=== PATIENT | female | born 1985 | race Caucasian/White ===

== ENCOUNTER → 2017-08-01 17:55 | Outpatient (CLI) | payer OTHER, SELFPAY ==
--- NOTE | 2017-08-01 18:44 | CT_ITS ---
STUDY: CT MAXILLOFACIAL SINUSES REASON FOR EXAM: Female, 32 years old. Sinusitis RADIATION DOSAGE (If Supplied By Facility): CTDIvol = ( 33.06 ) mGy, DLP = ( 858.64 ) mGycm TECHNIQUE: The patient was scanned in a multi detector CT scanner. High resolution axial imaging was performed without the administration of intravenous contrast material. Sagittal and coronal images were reconstructed. Individualized dose optimization techniques were used for this CT. COMPARISON: None. FINDINGS: FRONTAL SINUSES: Normal aeration, without mucosal inflammatory disease. ETHMOIDAL SINUSES: Normal aeration, without mucosal inflammatory disease. MAXILLARY SINUSES: Normal aeration, without mucosal inflammatory disease. SPHENOIDAL SINUSES: Normal aeration, without mucosal inflammatory disease. There is patency of the bilateral maxillary infundibuli with normal uncinate processes, ethmoid bullae, and hiatus semilunaris. Normal bilateral middle turbinates. Normal bilateral inferior turbinates. Normal midline nasal septum. There is patency of the bilateral nasal airways. The visualized osseous structures are normal. The visualized bilateral orbital contents are normal. CT/Sinus/Facial Bone IMPRESSION: Normal CT examination of the maxillofacial sinuses. Electronically Signed: Anoop Quezada, at 21:10 EST Tel , Service support ,
== END ==
PROVIDERS: Family Provider Student in an Organized Health Care Education/Training Program; PCP Student in an Organized Health Care Education/Training Program; Visit Provider Otolaryngology
DX: J32.9 Chronic sinusitis, unspecified (principal)
CPT/HCPCS: 70486

== ENCOUNTER 2017-08-13 18:33 | Emergency (ER) | payer OTHER, SELFPAY ==
[2017-08-13 18:33] VITALS: BP 121/88; PULSE 100; RESP 16; TEMP 36.4; O2SAT 99; BMI 31.1
--- NOTE | 2017-08-13 19:31 | ED.DCSUM_ITS ---
- ER Visit Summary Date of Service: 08/13/17 Chief Complaint: Redness, tender and discharge from the lower abdominal incision History of Present Illness: The patient is a 32 F is post multiple level lumbar fusion on 08/03/2017 at [facility] by Dr. Cox. She was doing well. She became constipated secondary to pain medications. Had a wound separation secondary to straining at stools and her lower abdominal incision they did both a anterior posterior approach. And in the last day or 2 is developed some redness, tenderness and discharge from the lower abdominal incision. She is concerned is infected. Denies any fever. No chills. Physical Examination: Ill-appearing young female. Vital signs are stable afebrile. Does not look septic toxic. No acute distress. HEENT exam unremarkable. Neck nontender. Lungs clear to auscultation bilaterally. Heart regular rate and rhythm no murmur. Abdomen is soft nondistended normal bowel sounds no peritoneal signs. He is a well-healing vertical lower abdominal incision. On the distal and there are several stitches of come loose. The wound is there is some mild redness and discharge to site. This could be early signs of infection. There is no surrounding cellulitis otherwise. The abdomen is nontender itself. But the wound is tender. Back exam doing well. She is a well-healing lower lumbar incision is dry and clean. She has normal sensation and motor strength in both lower extremities. Test Results: None Emergency Department Course and Treatment: This may be an early wound infection. She will be started on Keflex. And instructed to follow-up she is appointment to see her spine surgeon later this week. She does return immediately if this is looking worse or get into see her spine surgeon sooner. Treatment Plan: Keflex 4 times daily for 7 days. Wound care. Follow-up with her spine surgeon. Disposition: Discharge Impression: Lower abdominal incision wound separation with early wound infection Status post multiple level lumbar fusion with both anterior and posterior approach This note was generated with [employer] dictation software. It may contain incorrect words, spelling, and punctuation that were not noted in review of the chart prior to signing ED Disposition - Plan for ED Patient: Chief Complaint: Wound Referrals: Cale Dillon DO [Primary Care Provider] -
--- NOTE | 2017-08-13 19:39 | ED.DEP ---
ED Disposition - Plan for ED Patient: Disposition: Home or Assisted Living Chief Complaint: Wound Prescriptions: Cephalexin [Keflex] 500 mg PO Q6 #30 cap Additional Instructions: Clean wound daily with peroxide and water or soap and water. Sitting redness or discharge. Keflex 1 pill 4 times a day till gone. Follow-up with your spine surgeon as scheduled or sooner if wound is looking worse. Return to the ER if you are feeling worse such as fever or chills.
[2017-08-13] MEDS: Cephalexin 250 MG Capsule 500 MG PO (19:49)
[2017-08-13 19:50] VITALS: BP 109/71; PULSE 86; RESP 16; O2SAT 100
== END 2017-08-13 19:50 | disposition home or self-care (01) ==
PROVIDERS: Emergency Provider Emergency Medicine; Family Provider Student in an Organized Health Care Education/Training Program; PCP Student in an Organized Health Care Education/Training Program
DX: T85.79XA Infection and inflammatory reaction due to other internal prosthetic devices, implants and grafts, initial encounter (principal); Y83.8 Other surgical procedures as the cause of abnormal reaction of the patient, or of later complication, without mention of misadventure at the time of the procedure; Y92.9 Unspecified place or not applicable; K59.00 Constipation, unspecified; Z98.1 Arthrodesis status
CPT/HCPCS: 99283

== ENCOUNTER → 2018-04-18 08:55 | Outpatient (CLI) | payer OTHER, SELFPAY ==
--- NOTE | 2018-04-18 13:44 | NEURO ---
NCS and/or EMG Patient Report Ordering Doctor: Concepcion Obrien DATE OF SERVICE: 04/18/18 Betty Del Valle is a 33-year-old female who reports a 9-month history of left foot numbness. Electrodiagnostic findings: The left peroneal motor nerve demonstrates normal distal latency, amplitude and conduction velocity. No evidence of conduction block at the fibular head. Left tibial motor responses within normal limits. Normal left tibial and peroneal F-wave. Sensory responses are within normal limits, including plantar responses. Needle EMG testing shows no evidence of denervation in any muscles tested in the left lower limb as well as the left lower lumbar paraspinals. Electrodiagnostic impression: This is a normal electrodiagnostic study of the left lower limb. There is no electrodiagnostic evidence for lumbosacral radiculopathy or peripheral neuropathy. If there are any further questions, please do not hesitate to contact me
== END ==
PROVIDERS: Family Provider Student in an Organized Health Care Education/Training Program; PCP Student in an Organized Health Care Education/Training Program; Referring Provider Podiatrist; Visit Provider Podiatrist
DX: M54.17 Radiculopathy, lumbosacral region (principal); M25.572 Pain in left ankle and joints of left foot
CPT/HCPCS: 95886; 95910

== ENCOUNTER → 2018-12-25 | Outpatient (CLI) | payer OTHER, SELFPAY ==
[2018-12-18 15:19] VITALS: BMI 32.1
--- NOTE | 2018-12-25 08:27 | US_ITS ---
STUDY: ULTRASOUND OF THE FEMALE PELVIS - COMPLETE REASON FOR EXAM: Female, 33 years old. Dyspareunia: Distal hysterectomy. Status post left oophorectomy. TECHNIQUE: Transabdominal and Transvaginal TECHNICAL QUALITY: Adequate. COMPARISON: CT pelvis May 03, 2017 FINDINGS: The uterus has been surgically removed. The right ovary is visualized. The right ovary measures 3.3 x 2.5 x 2.2 cm. There is a 1.3 x 1.0 x 0.9 cm right ovarian cyst or follicle. There is no visualized right adnexal mass or complex lesion. There is normal arterial and normal venous vascularity. History given is left oophorectomy however there is a structure which morphologically appears to be a small left ovary that measures 1.4 x 0.7 cm. There is no fluid in the cul-de-sac. The bladder is decompressed on the transvaginal study and partially distended on the transabdominal study. US/Pelvic (Non ) IMPRESSION: Status post hysterectomy. Small right ovarian follicle. Recommend correlation with clinical history there is a small structure in the left side of the adnexa that has a morphologic appearance of an normal ovary. Electronically Signed: Shani Harmon MD at 17:24 EDT Tel , Service support ,
--- NOTE | 2018-12-25 08:27 | US_ITS ---
STUDY: ULTRASOUND OF THE FEMALE PELVIS - COMPLETE REASON FOR EXAM: Female, 33 years old. Dyspareunia: Distal hysterectomy. Status post left oophorectomy. TECHNIQUE: Transabdominal and Transvaginal TECHNICAL QUALITY: Adequate. COMPARISON: CT pelvis May 03, 2017 FINDINGS: The uterus has been surgically removed. The right ovary is visualized. The right ovary measures 3.3 x 2.5 x 2.2 cm. There is a 1.3 x 1.0 x 0.9 cm right ovarian cyst or follicle. There is no visualized right adnexal mass or complex lesion. There is normal arterial and normal venous vascularity. History given is left oophorectomy however there is a structure which morphologically appears to be a small left ovary that measures 1.4 x 0.7 cm. There is no fluid in the cul-de-sac. The bladder is decompressed on the transvaginal study and partially distended on the transabdominal study. US/Transvaginal Non- IMPRESSION: Status post hysterectomy. Small right ovarian follicle. Recommend correlation with clinical history there is a small structure in the left side of the adnexa that has a morphologic appearance of an normal ovary. Electronically Signed: Shani Harmon MD at 17:24 EDT Tel , Service support ,
== END | disposition home or self-care (01) ==
PROVIDERS: Family Provider Student in an Organized Health Care Education/Training Program; PCP Student in an Organized Health Care Education/Training Program; Referring Provider Nurse Practitioner Women's Health; Visit Provider Nurse Practitioner Women's Health
DX: R10.2 Pelvic and perineal pain (principal)
CPT/HCPCS: 76830; 76856; 93976

== ENCOUNTER → 2018-12-28 13:26 | Outpatient (CLI) | payer OTHER, SELFPAY ==
[2018-12-28 12:01] VITALS: BMI 32.1
== END ==
PROVIDERS: Family Provider Student in an Organized Health Care Education/Training Program; PCP Student in an Organized Health Care Education/Training Program; Referring Provider Obstetrics & Gynecology; Visit Provider Obstetrics & Gynecology
DX: N89.8 Other specified noninflammatory disorders of vagina (principal)
CPT/HCPCS: 87070; 87205

== ENCOUNTER 2019-08-22 08:01 | Outpatient (RCR) | payer OTHER, SELFPAY ==
[2018-12-28 12:01] VITALS: BMI 32.1
--- NOTE | 2019-08-23 08:19 | HP.FCE ---
HP OT Functional Capacity Eval Date of Evaluation: 08/22/19 - Task Lift Floor (Occasional 1-33% of Day): 30 lbs Floor (Frequent 34-66% of Day): 15 lbs Floor (Constant 67-100% of Day): negligible Floor PDL: Light Knee (Occasional 1-33% of Day): 30 lbs Knee (Frequent 34-66% of Day): 15 lbs Knee (Constant 67-100% of Day): negligible Knee PDL: Light Waist (Occasional 1-33% of Day): 30 lbs Waist (Frequent 34-66% of Day): 15 lbs Waist (Constant 67-100% of Day): negligible Waist PDL: Light Shoulder (Occasional 1-33% of Day): 20 lbs Shoulder (Frequent 34-66% of Day): 10 lbs Shoulder (Constant 67-100% of Day): negligible Shoulder PDL: Light Overhead (Occasional 1-33% of Day): 20 lbs Overhead (Frequent 34-66% of Day): 10 lbs Overhead (Constant 67-100% of Day): negligible Overhead PDL: Light Comments: Carry: Occassional: 15 lbs. Frequent: 10 lbs. Constant: negligible - Work Activity/Posture Bending: Frequent Ability (34-66% of day) Squatting: Frequent Ability (34-66% of day) Kneeling: Occasional Ability (1-33% of day) Reaching out: Frequent Ability (34-66% of day) Reaching up: Frequent Ability (34-66% of day) Sitting: Frequent Ability (34-66% of day) Walking: Frequent Ability (34-66% of day) Standing: Frequent Ability (34-66% of day) - Reference Duration Sedentary Sedentary Light Light Light Medium Medium Medium Heavy Very Heavy Heavy Occasional (0-33% of day) Frequent (34-66% of day) Constant (67-100% of day) 10 # Negligible Negligible 15 # 8 # Negligible 20 # 10# Negli. 35 # 18 # 7 # 50 # 25 # 10 # 75 # 100 # >100 # 38 # 50 # >50 # 15 # 20 # >20 # - Patient Information Height: 1.57 m Weight:: 87.997 kg Hand Dominance: right BP (Medication Use/Usual Values per pt report): No - Medical History Medical History Including Restrictions: No medical restrictions provided by referring physician or patient at this time. This was to see what she can physically complete. - Diagnoses Diagnoses: Past medical history: irritable bowel syndrome, C1 & C2 repair (2004), bipolar affective disorder, thyroid disease, migraines, left leg paresthesia, chronic low back pain with left sided sciatica, left foot drop (no brace), hysterectomy, spinal fusion from L 5- S1 (08/03/2017). Current: She is currently referred for functional capacity evaluation (FCE) due to ongoing lumbar back related pain from spinal fusion surgery 08/03/2017 and increased difficulty with compeltion of eight hout shift. - Symptoms Symptoms: She noted symptoms include numbness, tingling, burning, and sharp pain down left lower extremity. She noted symptoms are constant since surgery. - Pain Pain: She noted pain includes numbness, tingling, burning, and sharp pain down left lower extremity. She noted symptoms are constant since surgery. She has completed six weeks of physical therapy and recently been referred again for physical therapy services. She noted that she has. Daniel Pain Questionnaire is a self-report pain assessment to determine a patient?s accurate psychodynamics for accurate pain rating. A score of 30 or high indicates poor psychodynamics and the greater probability of decreased accuracy with accurate pain reporting. . Pre- Daniel: 28. Post Daniel: 36. Fear Avoidance Questionnaire (FAQ) is a client self-report assessment for 18-64+ that has shown to be reliable and valid for determining increased fear with movements. A score of 96 or higher indicates increased fear avoidance behaviors. FAQ Pre-testin. -Fear avoidance belief about work (items 6,7,9,10,11,12,15): 35. -Fear avoidance belief about physical activity (items 2,3,4,5):19. FAQ Post testing: -Fear avoidance belief about work (items 6,7,9,10,11,12,15): 28. -Fear avoidance belief about physical activity (items 2,3,4,5):17. Oswestry low back disability questionnaire is a subjective measurement in which a participant rates their low back pain on a scale. This higher the percentage the higher the perceived disability. Total: 16/50=32. The Lower Extremity Functional Scale questionnaire is a subjective measurement in which a participant rates their lower extremity function on a scale. This higher the percentage the higher the perceived disability. Total: 61/80. Completed the Foot and Ankle Disability Index (HILARIA) Score for further pain management measurements and results as follows: HILARIA: 72 - Work History Work History: Betty works at [employer] in [place], [place]. She noted she has been working there for about a month. She noted works monday through monday with frequent standing, bending, reaching, and squatting. 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 - Behavioral Behavioral: Betty was willing to participate in tasks and was cooperative and understanding with assessment. She exhibit good effort throughout sessiona nd pain reports appeared consistent with us eof Daniel. - ADLS ADLS: Betty lives with house with and two children. She noted two steps to enter through garage with no handrail. She noted she is independent with all self-care tasks and child rearing activities. She is driving and currently working full-time. She is able to go to grocery store and completed tasks but has been experience ongoing pain and discomfort since lumbar related spinal fusion in 2018 which pain is constant down left lower extremity and requires seated breaks after about hour of standing tasks. - Physical Examination Physical Examination: The purpose of this functional capacity evaluation (FCE) was to determine Betty?s physical ability. This FCE was performed in order to cafeteria helper in the determination of her physical ability for work -related tasks. This was a one day FCE. Aerobic limiting factor: 85% of max adjust HR= (220-age) *.85= 156. 4 bpm. Calculated max weight: 60% of weight- 118 lbs. Beginning Diagnostics: -Blood pressure: 129/92 mmHg. -Heart rate: 68 bpm. -Oxygen saturation at room air: 98% ROM: Range of Motion: Lumbar Spine with goniometer: -Flexion:0-39. -Extension: 0-33. -Lateral Flexion: R 0-34 , L 0-35 Strength: Strength measurements completed with use of manual muscle testing and short arm access of dynamometer. Results are as follows: Upper Body: Shoulder flexion: -Dynamometer: R 26.2 , L 16.4 lbs. Shoulder extension: -Dynamometer: R 16.6 , L 13.2 lbs. Shoulder abduction: -Dynamometer: R 15 , L 14.2 lbs. Shoulder Internal Rotation: -Dynamometer: R 18.4 , L 15.4 lbs. Shoulder External Rotation: -Dynamometer: R 14.8, L 14.5 lbs. Elbow flexion: -Dynamometer: R 26.0 , L 22.0 lbs. Elbow extension: -Dynamometer: R 14.6 , L 13.7 lbs. Lower Body: Hip flexion: -Dynamometer: R 25.7 , L 25.7 lbs. Hip adduction: -Dynamometer: R 26.4 , L 20. 5 lbs. Hip abduction: -Dynamometer: R 14.1 , L 18.7 lbs. Knee Flexion: -Dynamometer: R 27.8 , L 25. 2 lbs. Knee extension: -Dynamometer: R 30.3 , L 31.3 lbs. Plantarflexion: -Dynamometer: R 22.0 , L 21.8 lbs. Dorsiflexion: -Dynamometer: R 26.9 , L 27.4 Right [employer] Strength Average: 48.33 Left [employer] Strength Average: 34.33 Right Lateral Pinch Average: 10.00 Right Lateral Pinch Percentile: between 10th and 25th Left Lateral Pinch Average: 8.33 Left Lateral Pinch Percentile: below 10th Right Tripod Pinch Average: 6.33 Right Tripod Pinch Percentile: below 10th Left Tripod Pinch Average: 5.00 Left Tripod Pinch Percentile: below 10th Comments: [employer] testing on Dynamometer: Position 1: R 35 , L 19. Position 2: R 34 , L 28. Position 3: R 31 , L 42. Position 4: R 35 , L 19. Position 5: R 23 , L 19. A coefficient of variation greater than 15 % indicated decreased consistency of effort. Coefficient of variation: R 16%, L 40 %. Consistency of Effort: inconsistent Sensation: Sensation testing completed on bilateral feet with monofilament touch test. A score of normal on touch test is 2.83 and within normal range with just some discrepancies for light touch is between 3.22-3.61. The higher the number in more complications related to patient?s ability to perceive touch related sensory stimuli. R Foot: great toe 3.22 ,2nd 3.22 , 3rd 3.22 , 4th 3.61 , 5th 2.83. L foot: great toe 3.22 ,2nd 3.22 , 3rd 3.84 , 4th 3.22 , 5th 3.22. Completed foot sensation only as that is where symptoms persist. However, pain patterns consistent with low back related dermatome innervation and like some of sensory related pain is from lumbar spine. Fine Motor: Completed the Purdue Pegboard test to further determine the patient?s ability to complete 2-3 step tasks, assess fine motor control and general dexterity needed to complete assembly like work. The results are as follows: Right Hand: 16. -Percentile: 27th. Left Hand: 15. -Percentile: 30 th. Both Hands: 13. -Percentile: 37th. R+ L+ Both: 44. -percentile: 40th. Assembly: 8. -percentile: below 1st. Completed task in standing. Equal weightbearing observed into bilateral lower extremities. Balance: Sharpened Romberg is a sensory related balance test that can assess both vestibular and nonvestibular related balance conditions. This test can be used for higher level off the ground balance with eyes open and eyes closed. Completed with shoes on: Eyes open: Feet Together: 30 s. Semi- Tandem: 30 s. Tandem: 30 s. Eyes- Closed: Feet Together: 30 s. Semi- Tandem: 30 s. Tandem: 24 s. Functional reach test is used to determine static balance in patients. A score of 15 is normal and less than 10 increases risk of falling. A score of 6 or less significantly increases a patient?s risk of falling. [place] 1: 9.5. [place] 2: 9.5. [place] 3: 9.5. Average: 9.5. Limited by soft tissue as does not exhibit static balance concern at this time. Functional Gait Assessment (FGA) is a dynamic balance test to determine vestibular functioning and general dynamic balance ability of patient 18-65+. This assessment can be used with clients of various backgrounds to determine functional dynamic balance needed to complete every day work related tasks. 1.Gait Level Surface:3. 2.Change in Gait Speed: 2. 3.Gait with horizontal head turns:2. 4.Gait with vertical head turns:3. 5.Gait and pivot turn:3. 6.Step over obstacle:3. 7.Gait with narrow base of support: 3. 8.Gait with eyes closed: 3. 9.Ambulating Backwards: 3. 10.Steps: 3. Total Score: 28/maximum score 30. Exhibits good dynamic balance. - Non Material Handling Activities Bending: Heart rate prior to beginning with use of pulse oximeter: 81 bpm. 3x, 10x in 27.80 seconds, and 10x faster in 27.85 seconds. Completed with fair body mechanics. Betty exhibits equal weight bearing into bilateral lower extremities. Some increased mechanical compensations noted. She exhibits decreased spinal alignment with increased thoracic flexion. Slight increase in heart rate from exertion and no pain behaviors observed. She exhibits ability to complete frequently. Heart rate posttest with use of pulse oximeter: 91 bpm. Perceived pain: 3/10 Squatting: Heart rate prior to beginning with use of pulse oximeter: 86 bpm. 3x, 10x in 34.55 seconds, and 10x faster in 32.67 seconds. Completed with fair body mechanics. Exhibits ability to complete full squat. Completed with mechanical compensations of increased knee flexion placing increased force on knee. Compensations noted through pelvis with increased anterior pelvic tilt causing decreased spinal alignment. She noted increase in pain symptoms with increased burning of left foot. Some grimaces noted with tasks. Increase in heart rate appears to be exertion and potentially some pain. Exhibits ability to complete frequently. Heart rate posttest with use of pulse oximeter: 139 bpm. Perceived pain: 3/10- noted increased burning sensation in left foot Kneeling: Heart rate prior to beginning with use of pulse oximeter: 113 bpm. 3x, 10x in 28.48 seconds, and 10x faster in 29.28 seconds. Betty completed with [employer] body mechanics. Increased mechanical changes and compensations as tasks progressed. Decreased balance noted with task with onetime loss of balance with first set of ten repetitions and then three-time loss of balance occurrence with ability to complete self-righting behaviors to promote increased self-correction. Completed with mechanical compensations of lateral leaning to right side as well as increased anterior pelvic tilt and increased trunk flexion to promote balance for tasks. Some grimace and pain behaviors noted. Heart rate increased likely exertion and some mild increased pain related symptoms, but pain rating remains consistent. Exhibits ability to complete occasionally. Heart rate posttest with use of pulse oximeter: 134 bpm. Perceived pain: 3/10 Reaching out/up: Heart rate prior to beginning with use of pulse oximeter: 100 bpm. 3x, 10x in 12.67 seconds, and 10x faster in 11.01 seconds. Heart rate posttest with use of pulse oximeter: 106 bpm. Perceived pain: 3/10. Heart rate prior to beginning with use of pulse oximeter: 101 bpm. 3x, 10x in 11.08 seconds, and 10x faster in 9.90 seconds. Heart rate posttest with use of pulse oximeter: 120 bpm. Perceived pain: 3/10. Completed reaching forward and overhead with full range of motion and equal weightbearing tasks. Betty exhibit ability to complete equal weightbearing in bilateral lower extremity. She can complete reaching tasks frequently. Walking: Betty completed 20 mins of walking around facility with mild antalgic gait. She completed at good pace with ability to complete 4,760 feet within 20 minutes. She exhibits ability to complete frequent walking. However, walking does tend to exacerbate symptoms and would be beneficial to be completed with alternation between more sedentary tasks. Standing: During session Betty completed 60 mins of standing with both static and dynamic tasks. As standing tasks progressed there was increase in weight shifting and mechanical compensations to offset load away from left lower extremity. Betty noted symptoms increasing as standing tasks progressed and compensations were noted. She exhibits ability to complete frequent standing but should be provided with seated breaks throughout task to help manage pain. Sitting: Betty exhibits ability to complete 30 minutes of sitting with ability to complete longer. She noted sitting provides relief for lumbar spine and left lower extremity symptoms. She exhibits ability to complete frequently. Climbing Stairs: Heart rate prior to beginning with use of pulse oximeter: 81 bpm. Completed ten stairs with alternating foot patterns and no use of handrails. Heart rate posttest with use of pulse oximeter: 100 bpm. Perceived pain:3/10 - Dynamic Occasional Lifting Capacity Floor Lift: Heart rate prior to beginning with use of pulse oximeter: 100 bpm. Maximum weight: 1x 40 lbs. Occasional Liftinx 30 lbs. Frequent liftinx 15 lbs. Completed with fair body mechanics. Decreased ergonomics observed with increased straight leg lift and increased need for verbal cues to promote wider base of support. Equal weightbearing in bilateral lower extremities observed. Increased mechanical compensations with max weight but much improved as weight moved to occasional task. She exhibit consistency in effort for tasks. No increase in heart reflective of pain. no increase in pain related behaviors. Would benefit from further ergonomic training for load manipulation. Heart rate posttest with use of pulse oximeter: 106 bpm. Perceived pain: 3/10 Knee Lift: Heart rate prior to beginning with use of pulse oximeter: 106 bpm. Maximum weight: 1x 40 lbs. Occasional Liftinx 30 lbs. Frequent liftinx 15 lbs. Completed knee lift with fair mechanics. She exhibits increased compensations with increased reliance of bilateral upper extremities for lift while equal weightbearing was observe din lower extremities. Decreased ergonomics observed. Pain remained at 3/10 but noted increased sensory related pain with increased burning in foot. Slight grimace noted with movements but increase in heart rate reflective of exertion. Heart rate posttest with use of pulse oximeter: 117 bpm. Perceived pain: 3/10 Waist Lift: Heart rate prior to beginning with use of pulse oximeter: 91bpm. Maximum weight: 1x 40 lbs. Occasional Liftinx30 lbs. Frequent liftinx 15 lbs. Completed waist lift with fair mechanics. Decreased spinal alignment noted with increased anterior pelvic tilt during task for increased mechanical compensations due to weakness of core and trunk. Decreased consistency of effort noted as should be able to lift more at this location as this is power lift. No increase in ability observed but was starting to fatigue. Increase in heart likely due to exertion as pain remained at 3/10. Heart rate posttest with use of pulse oximeter: 111 bpm. Perceived pain: 3/10 Shoulder Lift: Heart rate prior to beginning with use of pulse oximeter: 108 bpm. Maximum weight: 1x 25 lbs. Occasional Liftinx 20 lbs. Frequent liftinx 10 lbs. Completed with fair mechanics. Completed with use of top handles of box. Increased anterior pelvic tilt observed with increased mechanical compensations through spine noted with load placement. Increase in heart rate observed likely due to effort and increase noted in pain in left foot. Equal weight bearing observed but increased pain behaviors during standing breaks during task as would weight shift on and off od left foot. Heart rate posttest with use of pulse oximeter: 126 bpm. Perceived pain: 3/10 Overhead Lift: Heart rate prior to beginning with use of pulse oximeter: 99 bpm. Maximum weight: 1x 25 lbs. Occasional Liftinx 20 lbs. Frequent liftinx 10 lbs. Completed with fair mechanics and increased mechanical compensations noted of increased anterior pelvic tilt due to core weakness and increased trunk extension observed. Completed with some pain behaviors observed of weight shifting to right load extremity to offset load to left lower extremity and foot. Completed with no increase in heart rate t reflect increase in distress or pain. Betty did not increase in pain symptoms of left foot. Heart rate posttest with use of pulse oximeter: 101 bpm. Perceived pain: 3/10 noted additional burning into heal. Carrying: Heart rate prior to beginning with use of pulse oximeter: 99 bpm. Maximum weight: 1x 25 lbs. Occasional Liftinx 15 lbs. Frequent liftinx 10 lbs. Completed with fair body mechanics. Increased mechanical compensations observed with increased weight shift and load distribution to right hip and lower extremity. She was exhibit to complete increased pain related behaviors with increased weight shift off right lower extremity. Betty noted increased ?pulling and throbbing of left foot and calf?. 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 Heart rate posttest with use of pulse oximeter: 132 bpm. Perceived pain: 4/10 Comments: Ending diagnostics: -Blood pressure: 114/69 mmHg. -Heart rate: 79. -Oxygen saturation at room air: 98 %
--- NOTE | 2019-08-23 08:19 | HP.OTFCE.D ---
FCE D/C Summary - Discharge SRI CHAKRABORTY was seen for a one time visit for an FCE on 08/22/19 and is discharged.
== END 2019-08-22 19:00 | disposition home or self-care (01) ==
LOC: OT 08:01
PROVIDERS: PCP Student in an Organized Health Care Education/Training Program; Referring Provider Student in an Organized Health Care Education/Training Program; Visit Provider Student in an Organized Health Care Education/Training Program
DX: M79.672 Pain in left foot (principal); M21.372 Foot drop, left foot; R20.2 Paresthesia of skin; S32.058G Other fracture of fifth lumbar vertebra, subsequent encounter for fracture with delayed healing; M54.42 Lumbago with sciatica, left side; G89.29 Other chronic pain
CPT/HCPCS: 97750

== ENCOUNTER → 2020-11-16 16:57 | Outpatient (CLI) | payer OTHER, SELFPAY ==
[2020-02-06 08:56] VITALS: BMI 32.1
[2020-11-16 17:59] LABS: D-Dimer Quantitative (DVT/PE) 0.56 FEU/ug/m (0.27-0.49)
== END ==
PROVIDERS: PCP Student in an Organized Health Care Education/Training Program; Referring Provider Physician Assistant; Visit Provider Physician Assistant
DX: R60.9 Edema, unspecified (principal)
CPT/HCPCS: 36415; 85379

== ENCOUNTER 2020-11-16 18:52 | Emergency (ER) | payer OTHER, SELFPAY ==
[2020-02-06 08:56] VITALS: BMI 32.1
[2020-11-16 18:52] VITALS: BP 152/77; PULSE 89; RESP 16; TEMP 36.4; O2SAT 98; BMI 34.7
--- NOTE | 2020-11-16 19:11 | EX.ED.DYSGE1 ---
HPI History of Present Illness Chief Complaint: Abn Labs Informant: patient Narrative Narrative: 35-year-old female recently flew home from [place]. She started to have some leg swelling so she went to her [facility] physician who sent her for D-dimer which returned elevated 0.56. She is here to obtain duplex ultrasound to rule out DVT. She denies any significant chest pain or shortness of breath. No palpitations. No prior history of DVT or PE. Patient notes both legs are swollen PFSH [facility] Medical History (Updated 11/16/20 @ 20:[address] Sabino Brownlee DO) Back pain Bipolar affective disorder C1 & C2 repair Gastrointestinal problem H/O abnormal cervical Papanicolaou smear (~2007) H/O bone fracture H/O LSO and extensive scar removal Hx of migraine headaches IBS (irritable bowel syndrome) Migraine Thyroid disease Home Medications lorazepam 0.5 mg tablet 0.5 mg PO QHS PRN 01/19/18 [History Last Taken Unknown] paroxetine HCl 20 mg tablet 20 mg PO QDAY 01/19/18 [History Last Taken Unknown] rizatriptan 10 mg tablet 10 mg PO ONCE 01/19/18 [History Last Taken Unknown] furosemide 40 mg PO DAILY #5 tab 11/16/20 [Rx Last Taken Unknown] potassium chloride 20 meq PO DAILY #5 tab 11/16/20 [Rx Last Taken Unknown] Allergy/AdvReac Type Severity Reaction Status Date / Time morphine Allergy Hives Verified 11/16/20 18:55 hydrocodone bitartrate AdvReac Nausea Verified 11/16/20 18:55 [From Vicodin] Family History Mother Heart disease Grandfather Diabetes Aunt Breast cancer Grandfather Hypertension CVA (cerebral vascular accident) Diabetes Surgical History H/O section H/O spinal fusion H/O: hysterectomy Social History Smoking Status: Never smoker alcohol intake: current details: occasionally substance use type: does not use caffeine: Yes what type of physical activity do you participate in: none seatbelt use: sometimes do you feel safe at home: Yes 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 ROS ROS ED Constitutional Constitutional ED: Denies chills or weight loss Eyes Eyes: Denies change in vision or diplopia ENT ENT ED: Denies ear pain, rhinorrhea or sore throat Cardiovascular Cardiovascular: Denies chest pain, orthopnea, palpitations or racing heartbeat Respiratory/Chest Respiratory/Chest: Denies cough, dyspnea or orthopnea Gastrointestinal Gastrointestinal: Denies abdominal pain, diarrhea, nausea or vomiting Genitourinary Genitourinary ED: Denies dysuria, hematuria or urinary frequency Musculoskeletal Musculoskeletal: Reports other Details: Bilateral leg swelling ; Denies arthralgias or myalgias Integumentary Denies abscess or rash Neurologic Neurologic: Denies headache(s) or weakness Psychiatric Psychiatric: Denies anxiety, depression, suicidal ideation or suicidal thoughts Endocrine Endocrinology: Denies polydipsia, polyphagia or polyuria Allergic/Immunologic Allergic/Immunologic ED: Denies mouth swelling, tongue swelling or urticaria EXAM Physical Exam Const Vital Signs: 11/16/20 18:52 Temperature 97.6 F L Temperature Source Temporal Pulse Rate 89 Respiratory Rate 16 Blood Pressure 152/77 H Blood Pressure Mean 102 Pulse Ox 98 Oxygen Delivery Method Room Air Positive well nourished and well developed General Appearance ED: well developed HEENT Reports normocephalic, head/scalp atraumatic and moist mucous membranes Eyes PERRL and EOMs intact bilaterally Neck no lymphadenopathy, supple and no JVD Resp normal respiratory effort and clear to auscultation bilaterally Cardio regular rate, regular rhythm and no murmurs GI normal to inspection, nondistended, normoactive bowel sounds and non-tender Palpation: soft Back/Spine no CVA tenderness and normal ROM Extremity normal to inspection Extremity Narrative: Patient has bilateral pitting edema to the level of the tibial tuberosity. There are no palpable cords. The calves are nontender. General Extremety ED: Yes edema General Extremity: edema Neuro oriented x3 and CN's II-XII intact bilaterally Sensorium / Orientation: alert Motor Exam: strength 5/5 throughout Psych mental status grossly normal Mood & Affect: Negative for depressed or tearful Skin no rashes or lesions noted and no wounds MDM MDM MDM Narrative Medical decision making narrative: Bilateral duplex ultrasound was negative for DVT. Potassium slightly low at 3.3. Not . Renal function normal. Patient will be started on K-Dur and some Lasix. Recommend elevating the legs. Monitoring salt intake. Follow-up with primary care. Lab Data Labs: Laboratory Results - last 24 hr 11/16/20 11/16/20 11/16/20 19:20 19:20 19:20 WBC 6.3 RBC 3.75 L Hgb 11.1 L Hct 33.1 L MCV 88.3 MCH 29.6 MCHC 33.5 RDW Std Deviation 40.1 RDW Coeff of Jitendra 12.4 Plt Count 218 MPV 9.9 Immature Gran % (Auto) 0.500 Neut % (Auto) 65.5 Lymph % (Auto) 26.3 [place] % (Auto) 6.2 Eos % (Auto) 1.3 Baso % (Auto) 0.2 Absolute Neuts (auto) 4.1 Absolute Lymphs (auto) 1.66 Nucleated RBC % 0 Sodium 142 Potassium 3.3 L Chloride 107 Carbon Dioxide 27.0 Anion Gap 8 BUN 13 Creatinine 0.74 Estim Creat Clear Calc 82.32 Est GFR (MDRD) Af Amer 114 Est GFR (MDRD) Non-Af 94 BUN/Creatinine Ratio 17.7 Glucose 109 H Calcium 8.6 Total Bilirubin 0.30 AST 20 ALT 31 Alkaline Phosphatase 68 Total Protein 6.6 Albumin 3.6 Globulin 3.0 Albumin/Globulin Ratio 1.2 Serum , Qual NEGATIVE Discharge Plan Triage Chief Complaint: Abn Labs ED Provider: Sabino Brownlee Dx/Rx/DC Orders Clinical Impression: Lymphedema Instructions: ED Peripheral Edema, Bilateral Prescriptions: New furosemide 40 mg tablet 40 mg PO DAILY Qty: 5 RF: 0 potassium chloride 20 mEq tablet extended release 20 meq PO DAILY Qty: 5 RF: 0 No Action paroxetine HCl 20 mg tablet 20 mg PO QDAY RF: 0 lorazepam [Ativan] 0.5 mg tablet 0.5 mg PO QHS PRNRF: 0 rizatriptan [Maxalt] 10 mg tablet 10 mg PO ONCE RF: 0 Primary Care Provider: Cale Dillon Referrals: Cale Dillon DO [Primary Care Provider] - 1 Week Disposition Disposition: Home, self care
--- NOTE | 2020-11-16 19:16 | US_ITS ---
STUDY: VENOUS DOPPLER ULTRASOUND - BILATERAL LOWER EXTREMITIES REASON FOR EXAM: Female, 35 years old. ELEVATED D DIMER AND BILAT LEG SWELLING TECHNIQUE: Ultrasound evaluation of the deep vein system to include pacheco-scale imaging and compression was performed. Pacheco-scale imaging and Doppler sonographic evaluation, including duplex spectral analysis and qualitative color flow sonography, was performed. COMPARISON: None. FINDINGS: RIGHT LEG Common Femoral Vein: Normal compression, spontaneity and augmentation. Normal color Doppler. Common Femoral Vein/Greater Saphenous Junction: Normal compression. Femoral Proximal: Normal compression. Femoral Middle: Normal compression, spontaneity and augmentation. Normal color Doppler. Femoral Distal: Normal compression. Popliteal Vein: Normal compression, spontaneity and augmentation. Normal color Doppler. Posterior Tibial Vein: Normal compression. Peroneal Vein: Normal compression. LEFT LEG Common Femoral Vein: Normal compression, spontaneity and augmentation. Normal color Doppler. Common Femoral Vein/Greater Saphenous Junction: Normal compression. Femoral Proximal: Normal compression. Femoral Middle: Normal compression, spontaneity and augmentation. Normal color Doppler. Femoral Distal: Normal compression. Popliteal Vein: Normal compression, spontaneity and augmentation. Normal color Doppler. Posterior Tibial Vein: Normal compression. Peroneal Vein: Normal compression. US/Venous Duplex Imag/Juan Extrem IMPRESSION: No demonstrated deep vein thrombosis. Electronically Signed: Yesi Colon MD at 20:27 EDT Tel , Service support ,
[2020-11-16 19:33] LABS: Absolute Lymphocyte Count 1.66 X10^3/uL (0.83-4.51); Absolute Neutrophil Count 4.1 X10^3/uL (2.0-7.7); Basophil# 0.01 X10^3/uL; Basophil% 0.2 % (0-1); Eosinophil# 0.08 X10^3/uL; Eosinophils% 1.3 % (0-5); Hematocrit 33.1 % (37-47); Hemoglobin 11.1 g/dL (12.0-15.0); Lymphocyte # 1.66 X10^3/ul (0.83-4.51); Lymphocyte % 26.3 % (19-41); Mean Corp Hgb Conc 33.5 g/dL (32-36); Mean Corpuscular Hgb 29.6 pg (27.0-32.0); Mean Corpuscular Volume 88.3 fL (81-99); Mean Platelet Vol. 9.9 fl (6.2-12.0); Monocyte# 0.39 X10^3/uL; Monocyte% 6.2 % (0-10); NRBC Flagged by Analyzer 0 % (0-5); Neutrophil # 4.14 X10^3/uL (2.7-7.7); Neutrophil % 65.5 % (47-70); Platelet Count 218 K/mm3 (150-450); RBC Distribution Width CV 12.4 % (11.6-14.6); RBC Distribution Width SD 40.1 fl (35.1-43.9); Red Blood Count 3.75 M/mm3 (4.2-5.4); White Blood Count 6.3 K/mm3 (4.4-11.0)
[2020-11-16 19:50] LABS: ALB/GLOB Ratio 1.2 RATIO (0.9-2.4); AST(SGOT) 20 U/L (15-37); Alanine Aminotransfer ALT/SGPT 31 U/L (13-56); Albumin, Serum 3.6 g/dL (3.2-5.0); Alkaline Phosphatase 68 U/L (45-117); Anion Gap 8 (5-15); BUN 13 mg/dL (7-18); BUN/Creat Ratio 17.7 RATIO (10-20); Calcium,Total 8.6 mg/dL (8.5-10.1); Chloride 107 mmol/L (98-107); Creatinine, Serum 0.74 mg/dL (0.55-1.02); EST Glomerular Filtration Rate 94 mL/min (>60); Est Glom Filt Rate - Afr Amer 114 mL/min (>60); Estimated Creatinine Clearance 82.32 ml/min; Glucose 109 mg/dL (74-106); Internal QC Validated? YES +Cl - CLEAR BKGD; Potassium 3.3 mmol/L (3.5-5.1); Pregnancy, Serum, hCG Quali. NEGATIVE Negative; Protein, Total 6.6 g/dL (6.4-8.2); Sodium Level 142 mmol/L (136-145)
[2020-11-16 20:30] VITALS: PULSE 68; RESP 15; O2SAT 100
== END 2020-11-16 20:30 | disposition home or self-care (01) ==
LOC: ED 20:15
PROVIDERS: Emergency Provider Emergency Medicine; PCP Student in an Organized Health Care Education/Training Program
DX: I89.0 Lymphedema, not elsewhere classified (principal); Z56.0 Unemployment, unspecified; F31.9 Bipolar disorder, unspecified
CPT/HCPCS: 80053; 84703; 85025; 93970; 99283; A4216

== ENCOUNTER → 2021-01-12 15:07 | Outpatient (CLI) | payer OTHER, SELFPAY ==
[2021-01-12 14:50] VITALS: BMI 34.7
[2021-01-12 16:06] LABS: Estradiol 65.6 pg/mL; Follicle Stimulating Hormone 5.6 mIU/mL; Thyroid Stim Hormone (TSH) 0.81 uIU/mL (0.358-3.74)
== END ==
PROVIDERS: PCP Student in an Organized Health Care Education/Training Program; Referring Provider Nurse Practitioner Women's Health; Visit Provider Nurse Practitioner Women's Health
DX: Z13.29 Encounter for screening for other suspected endocrine disorder (principal); R63.5 Abnormal weight gain
CPT/HCPCS: 36415; 82627; 82670; 83001; 84402; 84443; 82626

== ENCOUNTER → 2021-02-02 08:13 | Outpatient (CLI) | payer OTHER, SELFPAY ==
[2021-02-02 08:59] LABS: Cholesterol 239 mg/dL (200); High Density Lipoprotein 38 mg/dL; Triglycerides 324 mg/dL; Very Low Density Lipoprotein 65 mg/dL (5-40)
[2021-02-07 07:34] LABS: Testosterone Free 1.1 pg/mL (0.0-4.2)
== END ==
PROVIDERS: PCP Student in an Organized Health Care Education/Training Program; Referring Provider Nurse Practitioner Women's Health; Visit Provider Nurse Practitioner Women's Health
DX: R63.5 Abnormal weight gain (principal); Z13.220 Encounter for screening for lipoid disorders
CPT/HCPCS: 80061; 84402

== ENCOUNTER 2021-05-29 08:02 | Emergency (ER) | payer OTHER, SELFPAY ==
[2021-05-29 08:02] VITALS: BP 120/84; PULSE 82; RESP 16; TEMP 36.2; O2SAT 100; BMI 31.7
--- NOTE | 2021-05-29 08:16 | CT_ITS ---
STUDY: CT ABDOMEN AND PELVIS WITH CONTRAST REASON FOR EXAM: Female, 36 years old. Lower abdominal pain RADIATION DOSAGE (If Supplied By Facility): CTDIvol = ( 14.23 ) mGy, DLP = ( 1611.46 ) mGycm TECHNIQUE: Transaxial images were obtained from the dome of the diaphragm to the symphysis pubis without oral contrast. IV 100mL Isovue-370 was administered. Sagittal and coronal images were reconstructed. Individualized dose optimization techniques were used for this CT. COMPARISON: 05/03/2017 FINDINGS: No change in 4 mm noncalcified nodule right lower lobe lungs consistent with a noncalcified granuloma. The visualized portions of the heart are within normal limits. Normal liver. Normal gallbladder and extrahepatic biliary system. Normal spleen. Normal pancreas. Normal bilateral adrenal glands. Normal right kidney. Normal left kidney. Normal visualized stomach. Normal small intestine. Normal colon. The appendix is visualized and appears normal. Normal abdominal aorta. Normal inferior vena cava. Normal retroperitoneum. Normal urinary bladder. 3.5 x 4.5 cm peripherally enhancing fluid collection in the pelvis likely consistent with a corpus luteum cyst. Normal abdominal wall. Status post discectomy and interbody fusion and transpedicular fixation at L5/S1. CT/Abdomen/Pelvis W IV Cont ONLY IMPRESSION: 4.5 cm cystic mass in the pelvis. Differential diagnosis includes ovarian corpus luteum cyst, tubo-ovarian abscess, or endometrioma. Correlation with pelvic ultrasound may be useful. Electronically Signed: Winston cM MD at 9:43 EST Tel , Service support ,
--- NOTE | 2021-05-29 08:29 | ED.VIS.GI ---
HPI HPI - GI History of Present Illness Chief Complaint: Complaint Narrative Narrative: Patient presenting for evaluation secondary to abdominal pain. Patient reports that since earlier this week she has been dealing with symptoms. Associated with lower pelvic abdominal pain. She saw her primary care who noted that she had blood and leukocytes in her urine and placed her on Keflex for presumed urinary tract infection. Patient states that she has been having some worsening of pain. It radiates up into her epigastrium and into her flanks bilaterally. This continuous and seems to be worse with palpation now. Patient reports that she has been getting some chills and nausea but denies any vomiting diarrhea. Patient denies that she has any dysuria or visual hematuria. She denies any vaginal discharge. She is status post hysterectomy and unilateral to go and oophorectomy. Review of systems otherwise negative. [facility] Medical History (Updated 05/29/21 @ 13:[address] Gabriele Rey MD) Back pain Bipolar affective disorder C1 & C2 repair Gastrointestinal problem H/O abnormal cervical Papanicolaou smear (~2007) H/O bone fracture H/O LSO and extensive scar removal Hx of migraine headaches IBS (irritable bowel syndrome) Migraine Thyroid disease Home Medications ketorolac 10 mg PO Q6H 5 Days #20 tab 05/29/21 [Rx Last Taken Unknown] Allergy/AdvReac Type Severity Reaction Status Date / Time hydrocodone bitartrate Allergy Nausea Verified 05/29/21 08:05 [From Vicodin] morphine Allergy Hives Verified 01/12/21 14:50 acetaminophen [From Percocet] AdvReac Other Verified 05/29/21 08:05 oxycodone [From Percocet] AdvReac Other Verified 05/29/21 08:05 Family History Mother Heart disease Grandfather Diabetes Aunt Breast cancer Grandfather Hypertension CVA (cerebral vascular accident) Diabetes Surgical History H/O section H/O spinal fusion H/O: hysterectomy Social History Smoking Status: Never smoker alcohol intake: current details: occasionally substance use type: does not use caffeine: Yes what type of physical activity do you participate in: none seatbelt use: sometimes do you feel safe at home: Yes 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 ROS ROS ED Constitutional Constitutional ED: Reports chills ENT ENT ED: Denies sore throat Cardiovascular Cardiovascular: Denies chest pain Respiratory/Chest Respiratory/Chest: Denies cough or dyspnea Gastrointestinal Gastrointestinal: Reports abdominal pain Genitourinary Genitourinary ED: Denies dysuria, hematuria or urinary frequency Musculoskeletal Musculoskeletal: Denies myalgias Integumentary Denies rash Neurologic Neurologic: Denies paresthesias or weakness Psychiatric Psychiatric: Denies depression Endocrine Endocrinology: Denies polyuria Hematologic/Lymphatic Hematologic/Lymphatic: Denies easy bleeding or easy bruising Allergic/Immunologic Allergic/Immunologic ED: Denies urticaria EXAM Physical Exam Const Vital Signs: 05/29/21 08:02 Temperature 97.2 F L Temperature Source Temporal Pulse Rate 82 Respiratory Rate 16 Blood Pressure 120/84 H Blood Pressure Mean 96 Pulse Ox 100 Oxygen Delivery Method Room Air Positive well nourished and well developed General Appearance ED: well developed and NAD HEENT normocephalic and atraumatic Eyes EOMs intact bilaterally General Eye ED: Negative for pale conjunctiva or scleral icterus Neck no lymphadenopathy and supple Resp normal respiratory effort and clear to auscultation bilaterally Cardio regular rate, regular rhythm, no murmurs and peripheral pulses 2+ throughout GI non-distended and no masses GI Narrative: Tenderness palpation in the patient's suprapubic region as well as the epigastric region, no obvious laterality but the patient does voluntarily guard with deep palpation. Normal bowel sounds. No palpable masses. Palpation: soft; Negative for rigid or rebound tenderness present Back/Spine no CVA tenderness Extremity full ROM General Extremety ED: Negative for edema General Extremity: Negative for edema Neuro moves all extremities and no sensory deficits noted Sensorium / Orientation: alert, oriented to person, oriented to place and oriented to time Motor Exam: strength 5/5 throughout Psych mental status grossly normal Skin Rashes: no rashes MDM MDM MDM Narrative Medical decision making narrative: Patient presented secondary to persistent abdominal pain despite treatment for a urinary tract infection. She does have reproducible pain, believe that imaging is indicated. IV was status laboratory studies were obtained. CBC does not demonstrate leukocytosis, slight neutrophilic shift at 72%. Chemistry and liver panel were noted to be unremarkable. Urinalysis was noted to be unremarkable. CT abdomen and pelvis demonstrates a 4.5 cm cystic mass noted to be within the pelvis. Patient does have reproducible pain in her pelvis, so hCG was ordered as the patient does still have one ovary despite the fact that she has had a hysterectomy and a pelvic ultrasound was ordered. Patient was given Toradol and Zofran. Lab Data Labs: Laboratory Results - last 24 hr 05/29/21 05/29/21 05/29/21 08:29 08:29 08:45 WBC 6.1 RBC 4.19 L Hgb 12.6 Hct 37.0 MCV 88.3 MCH 30.1 MCHC 34.1 RDW Std Deviation 41.2 RDW Coeff of Jitendra 12.8 Plt Count 195 MPV 10.3 Immature Gran % (Auto) 0.700 Neut % (Auto) 72.6 H Lymph % (Auto) 18.3 L Nobles % (Auto) 7.2 Eos % (Auto) 1.0 Baso % (Auto) 0.2 Absolute Neuts (auto) 4.4 Absolute Lymphs (auto) 1.11 Nucleated RBC % 0 Sodium 140 Potassium 4.0 Chloride 107 Carbon Dioxide 28.0 Anion Gap 5 BUN 13 Creatinine 0.70 Estim Creat Clear Calc 82.23 Est GFR (MDRD) Af Amer 120 Est GFR (MDRD) Non-Af 99 BUN/Creatinine Ratio 18.6 Glucose 98 Calcium 9.0 Total Bilirubin 0.70 AST 16 ALT 42 Alkaline Phosphatase 47 Total Protein 6.7 Albumin 3.6 Globulin 3.1 Albumin/Globulin Ratio 1.2 Lipase 126 Urine Color Yellow Urine Clarity Clear Urine pH 6.0 Ur Specific [place] 1.020 Urine Protein Negative Urine Glucose (UA) Normal Urine Ketones Negative Urine Occult Blood 25 H Urine Nitrite Negative Urine Bilirubin Negative Urine Urobilinogen Normal Ur Leukocyte Esterase Negative Urine RBC 0-5 SEEN Urine WBC 0 SEEN Ur Squamous Epith Cells 0-5 SEEN Urine Bacteria 0 SEEN Urine Mucus 0 SEEN Urine Test 05/29/21 08:45 WBC RBC Hgb Hct MCV MCH MCHC RDW Std Deviation RDW Coeff of Jitendra Plt Count MPV Immature Gran % (Auto) Neut % (Auto) Lymph % (Auto) [place] % (Auto) Eos % (Auto) Baso % (Auto) Absolute Neuts (auto) Absolute Lymphs (auto) Nucleated RBC % Sodium Potassium Chloride Carbon Dioxide Anion Gap BUN Creatinine Estim Creat Clear Calc Est GFR (MDRD) Af Amer Est GFR (MDRD) Non-Af BUN/Creatinine Ratio Glucose Calcium Total Bilirubin AST ALT Alkaline Phosphatase Total Protein Albumin Globulin Albumin/Globulin Ratio Lipase Urine Color Urine Clarity Urine pH Ur Specific [place] Urine Protein Urine Glucose (UA) Urine Ketones Urine Occult Blood Urine Nitrite Urine Bilirubin Urine Urobilinogen Ur Leukocyte Esterase Urine RBC Urine WBC Ur Squamous Epith Cells Urine Bacteria Urine Mucus Urine Test Negative Radiography Diagnostic Testing: Clinical Impression(s) from Imaging Studies Abdomen/Pelvis CT 05/29/21 08:16 IMPRESSION: 4.5 cm cystic mass in the pelvis. Differential diagnosis includes ovarian corpus luteum cyst, tubo-ovarian abscess, or endometrioma. Correlation with pelvic ultrasound may be useful. Electronically Signed: Winston Mc MD at 9:43 EST Tel , Service support , Transvaginal US 05/29/21 09:51 IMPRESSION: 4 cm multiseptated hypoechoic mass in the left adnexa with surrounding free fluid. Differential diagnosis includes a corpus luteum cyst of the remaining left ovary which is reportedly been removed, endometrioma, or tubo-ovarian abscess. Electronically Signed: Winston Mc MD at 12:15 EST Tel , Service support , Discharge Plan Triage Chief Complaint: Complaint ED Provider: Gabriele Rey Dx/Rx/DC Orders Clinical Impression: Pelvic cyst Instructions: ED Pelvic Pain, Unknown Cause Prescriptions: New ketorolac 10 mg tablet 10 mg PO Q6H 5 Days Qty: 20 RF: 0 Primary Care Provider: Cale Dillon Referrals: Cale Dillon DO [Primary Care Provider] - Sandra Romo MD [STAFF PHYSICIAN] - 3-5 Days Disposition Disposition: Home, Self Care
[2021-05-29 08:37] LABS: Absolute Lymphocyte Count 1.11 X10^3/uL (0.83-4.51); Absolute Neutrophil Count 4.4 X10^3/uL (2.0-7.7); Basophil# 0.01 X10^3/uL; Basophil% 0.2 % (0-1); Eosinophil# 0.06 X10^3/uL; Hemoglobin 12.6 g/dL (12.0-15.0); Lymphocyte # 1.11 X10^3/ul (0.83-4.51); Lymphocyte % 18.3 % (19-41); Mean Corp Hgb Conc 34.1 g/dL (32-36); Mean Corpuscular Hgb 30.1 pg (27.0-32.0); Mean Corpuscular Volume 88.3 fL (81-99); Mean Platelet Vol. 10.3 fl (6.2-12.0); Monocyte# 0.44 X10^3/uL; Monocyte% 7.2 % (0-10); NRBC Flagged by Analyzer 0 % (0-5); Neutrophil # 4.41 X10^3/uL (2.7-7.7); Neutrophil % 72.6 % (47-70); Platelet Count 195 K/mm3 (150-450); RBC Distribution Width CV 12.8 % (11.6-14.6); RBC Distribution Width SD 41.2 fl (35.1-43.9); Red Blood Count 4.19 M/mm3 (4.2-5.4); White Blood Count 6.1 K/mm3 (4.4-11.0)
[2021-05-29 08:50] LABS: Bacteria 0 SEEN /hpf (None Seen); Color, Urine Yellow (Yellow); Glucose, Dipstick Normal (Normal); Ketone-Dipstick Negative (Negative); Leukocyte Esterase-Dipstick Negative /ul (Negative); Mucous, Urine 0 SEEN /hpf (<or=2+); Nitrite-Dipstick Negative (Negative); Occult Blood-Urine 25 /ul (Negative); Protein-Dipstick Negative (Negative); Urine Bilirubin Dipstick Negative (Negative); Urine Clarity Clear (Clear); Urine Urobilinogen Normal (Normal); White Blood Cells 0 SEEN /hpf (0-5)
[2021-05-29 08:54] LABS: ALB/GLOB Ratio 1.2 RATIO (0.9-2.4); AST(SGOT) 16 U/L (15-37); Alanine Aminotransfer ALT/SGPT 42 U/L (13-56); Albumin, Serum 3.6 g/dL (3.2-5.0); Alkaline Phosphatase 47 U/L (45-117); Anion Gap 5 (5-15); BUN 13 mg/dL (7-18); BUN/Creat Ratio 18.6 RATIO (10-20); Chloride 107 mmol/L (98-107); EST Glomerular Filtration Rate 99 mL/min (>60); Est Glom Filt Rate - Afr Amer 120 mL/min (>60); Estimated Creatinine Clearance 82.23 ml/min; Globulin 3.1 g/dL (2.2-4.2); Glucose 98 mg/dL (74-106); Lipase 126 U/L (73-393); Protein, Total 6.7 g/dL (6.4-8.2); Sodium Level 140 mmol/L (136-145)
[2021-05-29 08:56] LABS: Red Blood Cells-Urine 0-5 SEEN /hpf (0-5); Squamous Epithelial Cells - UA 0-5 SEEN /hpf (5-10)
--- NOTE | 2021-05-29 09:51 | US_ITS ---
STUDY: ULTRASOUND TRANSVAGINAL CLINICAL: Female, 36 years old. Pelvic cyst, pelvic pain TECHNIQUE: Transvaginal COMPARISON: CT earlier today FINDINGS: Status post hysterectomy and left offer ectomy.. Normal right ovary, measuring 3.1 x 1.7 x 2.1 cm. There are multiple follicles without a dominant cyst. 4.0 cm oval hypoechoic mass with innumerable septations and a thick wall within the left adnexa with some surrounding free fluid. Possibilities include a corpus luteum cyst of the remaining left ovary, endometrioma, or tubo-ovarian abscess.. There is a small amount of free fluid in the pelvis. Polycystic ovary disease: No. US/Transvaginal Non- IMPRESSION: 4 cm multiseptated hypoechoic mass in the left adnexa with surrounding free fluid. Differential diagnosis includes a corpus luteum cyst of the remaining left ovary which is reportedly been removed, endometrioma, or tubo-ovarian abscess. Electronically Signed: Winston Mc MD at 12:15 EST Tel , Service support ,
[2021-05-29] MEDS: Ketorolac 15 MG/ML Vial IV (10:10)
[2021-05-29] MEDS: Ondansetron 4 MG/2 ML Vial IV (10:10)
[2021-05-29 10:46] LABS: Internal QC Validated? YES +Cl - CLEAR BKGD; Pregnancy, Urine Negative Negative
== END 2021-05-29 13:09 | disposition home or self-care (01) ==
PROVIDERS: Emergency Provider Emergency Medicine; PCP Student in an Organized Health Care Education/Training Program
DX: N94.89 Other specified conditions associated with female genital organs and menstrual cycle (principal); F31.9 Bipolar disorder, unspecified; K58.9 Irritable bowel syndrome, unspecified; Z56.0 Unemployment, unspecified; Z79.1 Long term (current) use of non-steroidal anti-inflammatories (NSAID); Z90.721 Acquired absence of ovaries, unilateral
CPT/HCPCS: 74177; 76830; 80053; 81001; 81025; 83690; 85025; 87086; 93976; 96374; 96375; 99283; Q9967; A4216; J2405

== ENCOUNTER 2021-06-22 05:25 | Day surgery (SDC) | payer OTHER, SELFPAY ==
--- NOTE | 2021-06-21 17:39 | HP.PCM_ITS ---
History and Physical [facility] [id number] [place] [address] [phone] OFFICE VISITDate of Service: 06/22/21 MR#:[id number]:[id number]: SRI CHAKRABORTYep #:[id number] Provider:Dr. 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 Allergies hydrocodone bitartrate [From Vicodin] Allergy (Verified 05/29/21 08:05) Nausea morphine Allergy (Verified 01/12/21 14:50) Hives acetaminophen [From Percocet] Adverse Reaction (Verified 05/29/21 08:05) Other oxycodone [From Percocet] Adverse Reaction (Verified 05/29/21 08:05) Other Medications ketorolac 10 mg PO Q6H 5 Days #20 tab 05/29/21 [Rx Confirmed 06/02/21] cyclobenzaprine 10 mg tablet 10 mg PO TID PRN #30 tab 06/01/21 [Rx Confirmed 06/02/21] phentermine 37.5 mg capsule 37.5 mg PO DAILY 06/02/21 [History Confirmed 06/02/21] Is last menstrual period known: No Post menopausal: No Patient : No : No PFSH Medical History Back pain Bipolar affective disorder C1 & C2 repair Gastrointestinal problem H/O abnormal cervical Papanicolaou smear (~2007) H/O bone fracture H/O LSO and extensive scar removal Hx of migraine headaches IBS (irritable bowel syndrome) Migraine Thyroid disease Surgical History H/O section H/O spinal fusion H/O: hysterectomy Family History Mother Heart disease Grandfather Diabetes Aunt Breast cancer Grandfather Hypertension CVA (cerebral vascular accident) Diabetes Social History Smoking Status: Never smoker alcohol intake: current details: occasionally substance use type: does not use caffeine: Yes what type of physical activity do you participate in: none seatbelt use: sometimes do you feel safe at home: Yes additional social history: Hjvbkvl-Gpvcpws-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 She states that she is status post hyst with removal of her left side (so she thought) and multiple abdominal surgeries. her pain is improved since she has been resting but she would like surgical intervention to remove whatever this is. Attached ultrasound reports reads complex lesion, possible endometrioma of the left lower abdomen, likely ovarian remnant. Female Reproductive History Menopausal Symptoms: No night sweats Pregancy History 2 Elective abortions Hx Para 2 Spontaneous abortions Hx # Term Pregnancies Ectopic pregnancies Hx # Pregnancies Multiple births # of living children 2 Past Pregnancies Del. Date Name GA/Weeks Outcome Route Bth Weight Infant Gen Labor Lgth Anesthesia Del Locatn Provider FOB Unknown 2001- Hank Female Unknown 2007- David Male ROS Const Constitutional: Reports system reviewed and no additional complaints, except as documented, as per HPI, body ache, chills and other; Denies difficulty sleeping, fatigue, fever(s), headache(s), increased appetite, poor appetite, lethargy, malaise, night sweats, weight gain or weight loss Cardio Card: Denies chest pain Resp Resp: Reports system reviewed and no additional complaints, except as documented; Denies cough GI GI: Reports as per HPI Musc Musc: Reports back pain Psych Psych: Reports system reviewed and no additional complaints, except as documented Exam Const General: cooperative, healthy appearing, comfortable and no acute distress Resp Effort & Inspection: normal respiratory effort Skin General: no rashes or lesions noted Psych Appearance: grossly normal Speech and Movement: speech and movement normal Coding Level of Care Code Off vis,est,level 4 Diagnoses Pelvic cyst Assessment and Plan Assessment and Plan (1) Pelvic cyst: Status: Acute Plan - Dr. Paula Holloway, DO: based on extensive h/o pelvic surgery and desire for surgical intervention, will utilize the robotic device for careful dissection of probable ovarian remnant and endometrioma. plan for LSO, right salpingectomy, and lysis of adhesions with possible Gen surg intraop consult if involves bowel. After discussing the patient's diagnosis and treatment plan options, patient wishes to proceed with surgical management. I have discussed with the patient the risks, benefits, and alternatives of the procedure which include but are not limited to risks of anesthesia, bleeding, infection, possible damage to bowel, bladder, or surrounding vasculature which could lead to additional surgery to evaluate any complications. Patient agrees to procedure and wishes to proceed. ACOG/uptodate references given for additional information regarding procedure. Plan Details Goals & Barriers: Goals Decrease pain Decrease spasm Improve ability to perform ADLs Barriers Previous lumbar surgery UPDATE- I have seen the patient and performed any clinically relevant updates to the history and physical exam. Paula Holloway, DO
[2021-06-22] VITALS (11 sets, daily range): BP systolic 103–124; BP diastolic 69–83; PULSE 42–71; RESP 12–16; TEMP 36.1–36.6; O2SAT 99–100; BMI 30.5
[2021-06-22] MEDS: Enoxaparin 40 MG/0.4 ML Syringe SC (06:22)
[2021-06-22] MEDS: Celecoxib 200 MG Capsule 400 MG PO (06:23)
[2021-06-22] MEDS: Acetaminophen 500 MG Tablet 1000 MG PO (06:23)
[2021-06-22] MEDS: Gabapentin 600 MG Tablet PO (06:23)
[2021-06-22] MEDS: Lactated Ringers 1,000 ML 40 ML IV ×2 (06:24→08:46)
[2021-06-22 06:36] LABS: Bedside Glucose 98 mg/dL (70-110)
--- NOTE | 2021-06-22 07:30 | OV_PTH ---
PATIENT: SRI CHAKRABORTY [place] [facility] [place][id number] AGE/SX: 36/F ROOM: RE06/22/[address]: Dr. Paula Holloway DO : 1985 BED: DIS: 06/22/2021 SPEC #: [id number] RECD: 06/22/21 12:48 STATUS: TAMARA URBANO #: [id number] MICHELLE: 06/22/21 07:[address]: Paula Holloway DEPT: SURGICAL PATHOLOGY RECD BY: Ewelina Navas ENTERED: 06/22/21 13:10 SP TYPE: OVARY OTHR DR: Dr. Cale Dillon DO Tissues: Left ovary Procedures: Surgery Specimen Level IV HEADER OPERATION: ERAS, laparoscopic robotic removal of abdominal mass PRE-OP DIAGNOSIS: Abdominal cyst, mass TISSUE SUBMITTED: Bilateral fallopian tubes, left ovary MICROSCOPIC DIAGNOSIS Bilateral fallopian tubes and left ovary: One fallopian tube, no pathologic diagnosis. Corpus luteal cyst (3 cm in greatest dimension). One fibrous nodule with extensive calcification (0.5 cm in greatest dimension). Fragments of benign ovarian tissue. See comment. SJ:juanito 06/23/2021 COMMENT Only one fallopian tube is identified in the specimen. A second fallopian tube is not seen. The entire specimen is examined. MICROSCOPIC DESCRIPTION Slides are reviewed. GROSS DESCRIPTION Received in fixative is one container labeled with the patient's name and designated bilateral fallopian tubes, left ovary. The specimen consists of multiple pieces. One piece consists of a fallopian tube measuring 4 cm in length and 0.7 cm in diameter. The fimbrial end is identified. Sections reveal unremarkable cut surfaces. The second piece consists of portion of an ovary and measures 3 x 1.5 x 1 cm. This piece appears to be partially disrupted. The cut surface is suspicious for possible corpus luteum. Also present in the container are multiple pieces of soft tissue measuring in aggregate 2.5 x 2 x 0.3 cm. No obvious second fallopian tube is identified. The entire specimen is submitted in five cassettes as follows: 1 & 2 - fallopian tube, 3 & 4 - portion of ovary, possible corpus luteum, 5 - detached pieces of tissue. / BARB:juanito 06/22/2021 TC:5 CPT: 29854
--- NOTE | 2021-06-22 07:35 | PCM.DC ---
Discharge Instructions Diet Discharge Diet: No restrictions Activity Discharge Activity: Return to Normal Activity, May Not Drive (for two weeks or while taking narcotic pain medications.), May Shower and May Take a Tub Bath (in 7 days) May resume sexual activity in: 1 week Weight Bearing Status: Full weight bearing Dressing / Incision Call your doctor if you observe: Using more than 1 pad per hour, Shortness of breath, Chest pain and Uncontrolled pain Suture Line Care: Avoid Pulling/Pushing and Avoid Pinching/Bending Remove Dressing in: 1 week (if present) Cleanse incision/area with: Soap & Water and Keep Dressing Clean & Dry Follow Up Care Please Follow Up With: Paula Holloway DO When: Call to make an appointment with your doctor for a follow up incision check in 1-2 weeks. Test Results: Test results from this visit will be discussed in further detail at your follow-up appointment, if applicable. Discharge Plan Admission Primary Reason for Your Visit: laparoscopy Attending Provider: Paula Holloway Primary Care Provider: Cale Dillon Discharge Orders/Prescriptions Prescriptions: New oxycodone-acetaminophen [Percocet] 5-325 mg tablet 1 tab PO Q4H PRN (Reason: pain) 7 Days Qty: 20 RF: 0 ondansetron 4 mg tablet,disintegrating 4 mg PO Q6H PRN (Reason: nausea and vomiting) 7 Days Qty: 20 RF: 0 ibuprofen 800 mg tablet 800 mg PO Q8H PRN (Reason: pain) 7 Days Qty: 30 RF: 0 Continued rizatriptan [Maxalt] 10 mg Tablet 10 mg PO Q2H PRN (Reason: MIGRAINES) RF: 0 ascorbic acid (vitamin C) [Vitamin C] 500 mg Tablet 500 mg PO DAILY RF: 0 vitamin B complex Tablet 1 tab PO DAILY RF: 0 zinc 50 mg Tablet 50 mg PO DAILY RF: 0 gabapentin 100 mg capsule 100 mg PO PRN PRN (Reason: Pain) RF: 0 albuterol sulfate 90 mcg/actuation HFA aerosol inhaler 2 puff INHALATION PRN PRN (Reason: SOB) RF: 0 cholecalciferol (vitamin D3) [Vitamin D3] 25 mcg (1,000 unit) Capsule 25 mcg PO DAILY RF: 0 elderberry fruit 200 mg Capsule 200 mg PO DAILY RF: 0 Referrals / Follow Up: Dillon,Cale, DO [Primary Care Provider] - Disposition Disposition (needs filled in before D/C Order can be placed): Home, Self Care
[2021-06-22] MEDS: Bupivacaine 0.25% 30 ML Vial (08:10)
[2021-06-22] MEDS: Ondansetron 4 MG/2 ML Vial IV (08:40)
--- NOTE | 2021-06-22 09:11 | PCM.OP.BLANK ---
Problems Associated Problem List Diagnoses (1) Pelvic mass: (2) Segmental and somatic dysfunction of pelvic region: (3) Lymphedema: Operative Report Date of Procedure: 06/22/21 Preoperative diagnosis: Left adnexal pelvic mass and pelvic pain, history of multiple pelvic surgeries, including hysterectomy Preoperative diagnosis: Left adnexal pelvic mass and pelvic pain, multiple pelvic surgeries including hysterectomy Surgery: Robotic dissection and local left pelvic sidewall mass left salpingectomy left oophorectomy and right salpingectomy Surgeon: Dr. Paula Corona DO Occupational Health Nurse Manager:ARLIN Gabriel Findings: Left sidewall mass incorporating the left knee into, left ovarian remnant, normal right ovary and fallopian tube, surgical absence of the uterus and cervix Complications: none EBL: 5cc Anesthesia: General tracheal intubation Reason for surgery: This is a [ ]-year-old G[ ], P[ ] who presented to my office from [ ] with history of [blank] the planned procedure is for a robotic hysterectomy the risks benefits and alternatives were discussed with the patient the patient had a clear understanding of the procedure and a consent form was signed. Procedure: The patient was placed in the dorsal low lithotomy position and prepped and draped in the normal sterile fashion both abdominally and in the perineum. Her legs were placed in stirrups. A sponge stick was inserted into the vagina Gloves were changed and attention was turned towards the abdomen. After Marcaine injection, a 5mm trocar with a visiport was inserted into the umbical region using the 5mm laparoscope for guided entry. At 12 cm lateral to the midline on the left and right sides 8 mm accessory ports were placed. Next a left upper quadrant 8 mm pastrycook's assistant port site was placed. The patient was placed in steep Trendelenburg position. The robot was docked. Noted to be a left pelvic sidewall mass measured approximately 4 years and involved part of the fallopian tube. The left ovary was noted to be smaller and could possibly have been an ovarian remnant as compared to the right ovary which appeared normal. The right fallopian tube was also found to be normal. A aspect of the fallopian tube was grasped and the underlying mesosalpinx was cauterized and cut using the vessel sealer device. Excellent hemostasis was noted. There was intervention of the left pelvic sidewall. Epiploica from the bowel was carefully and sharply dissected off of the mass. Using the probe grasper the mass was identified and isolated with a vessel sealer device was then used to cauterize scar tissue and the mass and fallopian tube were removed without difficulty. The ovarian tissue is identified and grasped with a progress however easily dissected away from the palm without using much dissection a small piece of scar tissue was holding the ovary in place this was cauterized and cut and the ovary was completely detached. The hot corazon were used to create cautery using monopolar cautery on the dissected edges. There was also applied on these areas after suction irrigation was performed. Excellent hemostasis was achieved. The specimens were placed in an Endo Catch bag and removed through the 8 mm laparoscopic port site. At this time the decision was made to end the procedure. Robot was undocked. The abdominal cavity was again examined using the laparoscope after the robot was undocked. All operative sites were noted to be hemostatic. The trochars were removed under direct visualization without complication and pneumoperitoneum was reduced. At this point the skin was then closed using 4-0 Monocryl subcuticular stitch and sealed with surgical glue. The patient tolerated the procedure well sponge lap and needle counts were correct x2 the patient was taken to the recovery room in stable condition. Specimens removed: Ovarian remnant ,left fallopian tube, right fallopian tube Multi Select Codes Urinary/Genital Urinary/Genital CPT Codes: 34112 Laproscopic BS/O
[2021-06-22] MEDS: oxyCODONE 5 MG Tablet PO (11:18)
[2021-06-22] MEDS: Acetaminophen 325 MG Tablet PO (11:18)
== END 2021-06-22 23:59 | disposition home or self-care (01) ==
LOC: SDC 05:25 → AC 05:25
PROVIDERS: PCP Student in an Organized Health Care Education/Training Program; Referring Provider Obstetrics & Gynecology; Visit Provider Obstetrics & Gynecology
PROC: 0UT94ZZ Resection of Uterus, Percutaneous Endoscopic Approach (ICD-10-PCS; CPT 58661; principal; 2021-06-22 07:10)
DX: N83.12 Corpus luteum cyst of left ovary (principal); M99.05 Segmental and somatic dysfunction of pelvic region; Z90.710 Acquired absence of both cervix and uterus; Z20.822 Contact with and (suspected) exposure to COVID-19
CPT/HCPCS: 58661; S2900; 00840; 82962; 87426; 88305; C9803; J7120; A4216; J2405

== ENCOUNTER 2021-12-11 19:30 | Emergency (ER) | payer OTHER, SELFPAY ==
[2021-12-11 19:31] VITALS: BP 152/92; PULSE 120; RESP 18; TEMP 36.8; O2SAT 97; BMI 42.3
--- NOTE | 2021-12-11 19:49 | EDS_ITS ---
HPI History of Present Illness Chief Complaint: Edema Narrative Narrative: 36-year-old female presenting with bilateral lower extremity lymphedema. She states she had an elective tummy tuck on Monday in [place]. She states that she is told she has to not lay back flat and she has to ask someone to keep her torso upright and she is to sleep with her legs up on a couple of pillows. She states that the swelling does come and go. When she gets up and walks around it seems to improve it. She had a lymphatic massage today of her lower extremities and her swelling is improved. She does not have pain when her legs are swollen. There is no skin discoloration. She has not any problems with her wounds on her lower abdomen. No fevers or chills. PFSH [facility] Medical History Alcohol use Back pain Bipolar affective disorder C1 & C2 repair Electrocution Gastrointestinal problem H/O abnormal cervical Papanicolaou smear (~2007) H/O bone fracture H/O LSO and extensive scar removal Hx of migraine headaches IBS (irritable bowel syndrome) Injury of back Injury of head and neck Migraine Non-smoker Thyroid disease Home Medications albuterol sulfate 90 mcg/actuation aerosol inhaler 2 puff inhalation PRN PRN SOB 06/15/21 [History Last Taken Unknown] ascorbic acid (vitamin C) 500 mg tablet (Vitamin C) 500 mg PO DAILY 06/15/21 [History Last Taken Unknown] cholecalciferol (vitamin D3) 25 mcg (1,000 unit) capsule (Vitamin D3) 25 mcg PO DAILY 06/15/21 [History Last Taken Unknown] elderberry fruit 200 mg capsule 200 mg PO DAILY 06/15/21 [History Last Taken Unknown] gabapentin 100 mg capsule 100 mg PO PRN PRN Pain 06/15/21 [History Last Taken Unknown] rizatriptan 10 mg tablet (Maxalt) 10 mg PO Q2H PRN MIGRAINES 06/15/21 [History Last Taken Unknown] vitamin B complex 1 tab PO DAILY 06/15/21 [History Last Taken Unknown] zinc 50 mg tablet 50 mg PO DAILY 06/15/21 [History Last Taken Unknown] ondansetron 4 mg disintegrating tablet 4 mg PO Q6H PRN nausea and vomiting 7 days #20 tabs 06/22/21 [Rx Last Taken Unknown] arnica 20 % topical tincture ea topical 12/11/21 [History Last Taken Unknown] cephalexin 500 mg capsule 500 cap PO 4X/DAY 12/11/21 [History Last Taken Unknown] ondansetron 4 mg disintegrating tablet 4 mg PO Q8H PRN PRN Nausea 12/11/21 [History Last Taken Unknown] Allergy/AdvReac Type Severity Reaction Status Date / Time hydrocodone bitartrate Allergy Nausea Verified 12/11/21 19:33 [From Vicodin] morphine Allergy Hives Verified 12/11/21 19:33 oxycodone [From Percocet] AdvReac Other Verified 12/11/21 19:33 Family History Mother Heart disease Grandfather Diabetes Aunt Breast cancer Grandfather Hypertension CVA (cerebral vascular accident) Diabetes Surgical History H/O section H/O spinal fusion H/O: hysterectomy History of left salpingo-oophorectomy History of surgery Hx of neck surgery Hx of unilateral oophorectomy Social History Smoking Status: Never smoker alcohol intake: current details: occasionally substance use type: does not use caffeine: Yes what type of physical activity do you participate in: none seatbelt use: sometimes do you feel safe at home: Yes additional social history: [employer] Patient is unemployed [facility] ED Constitutional Constitutional ED: Denies chills or fever(s) Eyes Eyes: Denies blurry vision or change in vision ENT ENT ED: Denies rhinorrhea Cardiovascular Cardiovascular: Denies chest pain or palpitations Respiratory/Chest Respiratory/Chest: Denies cough or dyspnea Gastrointestinal Gastrointestinal: Denies abdominal pain or constipation Genitourinary Genitourinary ED: Denies dysuria or hematuria Musculoskeletal Musculoskeletal: Reports other Details: Bilateral lower extremity edema ; Denies back pain Integumentary Reports other Details: Postoperative wounds EXAM Physical Exam Const Vital Signs: 12/11/21 19:31 12/11/21 19:35 Temperature 98.2 F Temperature Source Temporal Pulse Rate 120 H Respiratory Rate 18 Respiratory Effort Normal Respiratory Pattern Normal Blood Pressure 152/92 H Blood Pressure Mean 112 Pulse Ox 97 Oxygen Delivery Method Room Air Positive well nourished General Appearance ED: NAD HEENT Reports moist mucous membranes Chest Wall inspection of chest normal and palpation of chest normal Resp normal respiratory effort Auscultation: Negative for rales, rhonchi or wheezes Cardio regular rhythm GI GI Narrative: Postoperative wounds are clean dry intact on the abdomen. There are [address] with serosanguineous fluid. Extremity Extremity Narrative: No cords palpated bilaterally General Extremety ED: Yes edema; Negative for cyanosis General Extremity: edema; Negative for cyanosis Neuro oriented x3 and CN's II-XII intact bilaterally Sensorium / Orientation: alert, oriented to person, oriented to place and oriented to time Motor Exam: strength 5/5 throughout MDM MDM MDM Narrative Medical decision making narrative: Patient presenting with bilateral lower extremity edema postoperatively. I believe this is all postsurgical. She has no cords palpated. Her lower extremity compartments are soft. The swelling goes down when she ambulates and after her massage. I counseled her she should put compression on them and try to keep it elevated. Impression: 1. Bilateral lower extremity edema Discharge Plan Triage Chief Complaint: Edema ED Provider: Jorge Alberto Emery Dx/Rx/DC Orders Instructions: ED Lymphedema Prescriptions: No Action rizatriptan [Maxalt] 10 mg Tablet 10 mg PO Q2H PRN (Reason: MIGRAINES) ascorbic acid (vitamin C) [Vitamin C] 500 mg Tablet 500 mg PO DAILY vitamin B complex Tablet 1 tab PO DAILY zinc 50 mg Tablet 50 mg PO DAILY gabapentin 100 mg capsule 100 mg PO PRN PRN (Reason: Pain) Label Comments: TAKE 1 TO 2 CAPSULES BY MOUTH THREE TIMES DAILY NEEDED FOR FOOT PAIN albuterol sulfate 90 mcg/actuation HFA aerosol inhaler 2 puff INHALATION PRN PRN (Reason: SOB) cholecalciferol (vitamin D3) [Vitamin D3] 25 mcg (1,000 unit) Capsule 25 mcg PO DAILY elderberry fruit 200 mg Capsule 200 mg PO DAILY ondansetron 4 mg tablet,disintegrating 4 mg PO Q6H PRN (Reason: nausea and vomiting) 7 Days Qty: 20 0RF cephalexin 500 mg capsule 500 cap PO 4X/DAY Label Comments: TAKE 1 CAPSULE BY MOUTH TWICE DAILY FOR 7 DAYS arnica 20 % Tincture TOPICAL ondansetron 4 mg tablet,disintegrating 4 mg PO Q8H PRN PRN (Reason: Nausea) Label Comments: DISSOLVE 1 TABLET IN MOUTH EVERY 6 HOURS NEEDED FOR NAUSEA AND VOMITING Primary Care Provider: Cale Dillon Referrals: Cale Dillon DO [Primary Care Provider] - Disposition Disposition: Home, Self Care
== END 2021-12-11 20:11 | disposition home or self-care (01) ==
LOC: ED 19:53
PROVIDERS: Emergency Provider Student in an Organized Health Care Education/Training Program; PCP Student in an Organized Health Care Education/Training Program; Visit Provider Student in an Organized Health Care Education/Training Program
DX: R60.0 Localized edema (principal); F31.9 Bipolar disorder, unspecified
CPT/HCPCS: 99282

== ENCOUNTER → 2022-05-16 | Outpatient (CLI) | payer OTHER, SELFPAY ==
--- NOTE | 2022-05-16 14:48 | US_ITS ---
STUDY: ULTRASOUND OF THE FEMALE PELVIS - COMPLETE REASON FOR EXAM: Female, 37 years old. Ovarian Cyst(s)US - Pelvic, Tvag LMP: Prior hysterectomy TECHNIQUE: Transabdominal and Transvaginal TECHNICAL QUALITY: Adequate. COMPARISON: 05/29/2021 FINDINGS: The uterus is surgically absent. The right ovary is visualized. The right ovary measures 3.8 x 3.1 x 3.1 cm. 1.9 x 2.0 x 2.0 cm cyst There is no visualized right adnexal mass or complex lesion. There is normal arterial and normal venous vascularity. The left ovary is surgically absent. No finding of left adnexal mass. There is no fluid in the cul-de-sac. Polycystic ovary disease: No. US/Pelvic (Non ) IMPRESSION: Left adnexal mass longer demonstrated. Right ovarian cysts measure 2 cm. Electronically Signed: Chauncey Contreras MD at 21:44 EST ,
== END | disposition home or self-care (01) ==
LOC: US 14:46
PROVIDERS: PCP Student in an Organized Health Care Education/Training Program; Referring Provider Obstetrics & Gynecology; Visit Provider Obstetrics & Gynecology
DX: N83.201 Unspecified ovarian cyst, right side (principal)
CPT/HCPCS: 76830; 76856

== ENCOUNTER 2024-01-04 03:04 | Emergency (ER) | payer OTHER, SELFPAY ==
[2024-01-04 03:05] VITALS: BP 156/91; PULSE 56; RESP 18; TEMP 35.5; O2SAT 98; BMI 51.7
--- NOTE | 2024-01-04 03:27 | EKG12_ITS ---
Test Reason : Blood Pressure : / mmHG Vent. Rate : 059 BPM Atrial Rate : 059 BPM P-R Int : 208 ms QRS Dur : 082 ms QT Int : 412 ms P-R-T Axes : 027 004 002 degrees QTc Int : 407 ms Sinus bradycardia Minimal voltage criteria for LVH, may be normal variant ( R in aVL ) Borderline ECG Confirmed by SAWYER HERNANDEZ, MOUNIKA ([id number]), electronic news gathering editor CARLOS A VILLALOBOS ([id number]) on 01/09/2024 1:46:58 PM Referred By: Confirmed By:ALIYA JACQUES MD
--- NOTE | 2024-01-04 03:27 | RAD_ITS ---
EXAM: XR CHEST, 1 VIEW CLINICAL INDICATION: edema TECHNIQUE: Frontal view of the chest. COMPARISON: Two-view chest 03/18/2009 FINDINGS: LUNGS AND PLEURAL SPACES: Unremarkable. No consolidation or edema. No pneumothorax. No effusion. HEART: Unremarkable. Cardiac silhouette not enlarged. MEDIASTINUM: Central airways and mediastinal contour are unremarkable. BONES/JOINTS: Unremarkable. No acute fracture. SOFT TISSUES: Unremarkable. RAD/Chest 1 View (Portable) IMPRESSION: No radiographic evidence of acute cardiopulmonary disease. Electronically Signed: Phil Varner MD at 4:20 EDT ,
[2024-01-04 03:31] VITALS: BP 122/68; PULSE 63; RESP 16; O2SAT 99
--- NOTE | 2024-01-04 03:48 | EX.ED.DYSGE1 ---
HPI History of Present Illness Chief Complaint: Edema Informant: patient Onset/Context/Timing Onset: Days Narrative Narrative: Patient presents secondary to increasing lower extremity edema. She states she noted some swelling in her legs last week that is progressively been getting worse. Tonight she felt that her legs were very tight and had tingling in her skin from being stretched. She denies change in diet. No recent travel or history of blood clots. She does not have shortness of breath. [facility] OF [facility] Medical History Alcohol use Injury of back Injury of head and neck Non-smoker Electrocution H/O abnormal cervical Papanicolaou smear (~2007) C1 & C2 repair H/O LSO and extensive scar removal Thyroid disease IBS (irritable bowel syndrome) Hx of migraine headaches Gastrointestinal problem H/O bone fracture Migraine Bipolar affective disorder Back pain Home Medications ?Medication ?Instructions ?Recorded ?Last Taken ?Type albuterol sulfate 90 mcg/actuation 2 puff inhalation PRN PRN SOB 06/15/21 Unknown History aerosol inhaler elderberry fruit 200 mg capsule 200 mg PO DAILY PRN supplement 06/15/21 Unknown History rizatriptan 10 mg tablet (Maxalt) 10 mg PO Q2H PRN MIGRAINES 06/15/21 Unknown History furosemide 40 mg tablet (Lasix) 40 mg PO DAILY #4 tabs 01/04/24 Unknown Rx metformin 500 mg tablet 500 mg PO QPM 01/04/24 Unknown History Allergy/AdvReac Type Severity Reaction Status Date / Time hydrocodone bitartrate (From Allergy Nausea Verified 01/04/24 03:05 Vicodin) morphine Allergy Hives Verified 01/04/24 03:05 oxycodone (From Percocet) AdvReac Other Verified 01/04/24 03:05 Family History Mother Heart disease Grandfather Diabetes Aunt Breast cancer Grandfather Hypertension CVA (cerebral vascular accident) Diabetes Surgical History History of left salpingo-oophorectomy Hx of neck surgery History of surgery Hx of unilateral oophorectomy H/O spinal fusion H/O: hysterectomy H/O section Social History Smoking Status: Never smoker alcohol intake: current details: occasionally substance use type: does not use caffeine: Yes what type of physical activity do you participate in: none seatbelt use: sometimes do you feel safe at home: Yes additional social history: [id number] Patient works at [employer] ROS ED Constitutional Constitutional ED: Denies chills or fever(s) Eyes Eyes: Denies discharge from eye(s) ENT ENT ED: Denies discharge from eye(s), rhinorrhea or sore throat Cardiovascular Cardiovascular: Denies chest pain Respiratory/Chest Respiratory/Chest: Denies cough or dyspnea Gastrointestinal Gastrointestinal: Denies abdominal pain, nausea or vomiting Genitourinary Genitourinary ED: Denies dysuria Musculoskeletal Musculoskeletal: Reports extremity pain; Denies back pain Integumentary Denies Abrasions or rash Neurologic Neurologic: Denies headache(s) or weakness Psychiatric Psychiatric: Denies anxiety or depression Allergic/Immunologic Allergic/Immunologic ED: Denies lip swelling or urticaria EXAM Physical Exam Const Vital Signs: 01/04/24 03:05 01/04/24 03:31 Temperature 96 F L Temperature Source Temporal Pulse Rate 56 L 63 Respiratory Rate 18 16 Blood Pressure 156/91 H 122/68 H Blood Pressure Mean 112 86 Pulse Ox 98 99 Oxygen Delivery Method Room Air Room Air Positive well nourished and well developed General Appearance ED: well developed HEENT Reports moist mucous membranes Eyes EOMs intact bilaterally Chest Wall inspection of chest normal and palpation of chest normal Resp normal respiratory effort and clear to auscultation bilaterally Cardio regular rate and regular rhythm GI non-tender Palpation: soft Extremity Extremity Narrative: 3+ bilateral lower extremity edema, symmetric. No erythema or wounds noted. Neuro oriented x3 and no sensory deficits noted Motor Exam: strength 5/5 throughout Psych mental status grossly normal Skin no rashes or lesions noted MDM MDM MDM Narrative Medical decision making narrative: IV line initiated. Labwork obtained to evaluate for leukocytosis, anemia, and electrolyte derangement. Urinalysis obtained to evaluate for infection/hematuria. Chest x-ray obtained to evaluate for acute lung pathology, cardiac size, or mediastinal abnormality. EKG obtained to evaluate for cardiac arrhythmia/ischemia. History & Record Review Discussion w/independent historian: Patient Lab Data Attestation: I reviewed the patient's lab results. Labs: Laboratory Results - last 24 hr 01/04/24 01/04/24 03:41 05:15 WBC 6.4 RBC 4.00 L Hgb 12.0 Hct 35.4 L MCV 88.5 MCH 30.0 MCHC 33.9 RDW Std Deviation 39.8 RDW Coeff of Jitendra 12.3 Plt Count 210 MPV 10.3 Immature Gran % (Auto) 0.500 Neut % (Auto) 65.6 Lymph % (Auto) 25.0 [place] % (Auto) 7.8 Eos % (Auto) 0.8 Baso % (Auto) 0.3 Absolute Neuts (auto) 4.2 Absolute Lymphs (auto) 1.61 Nucleated RBC % 0 D-Dimer Quant (PE/DVT) < 0.27 L Sodium 140 Potassium 3.7 Chloride 106 Carbon Dioxide 27.0 Anion Gap 7 BUN 20 H Creatinine 0.88 Estim Creat Clear Calc 85.08 Est GFR (MDRD) Af Amer 91 Est GFR (MDRD) Non-Af 75 BUN/Creatinine Ratio 22.6 H Glucose 107 H Calcium 9.3 B-Natriuretic Peptide 14.6 TSH 2.53 Serum , Qual NEGATIVE Urine Color Yellow Urine Clarity Clear Urine pH 6.0 Ur Specific [place] 1.015 Urine Protein Negative Urine Glucose (UA) Normal Urine Ketones Negative Urine Occult Blood 25 H Urine Nitrite Negative Urine Bilirubin Negative Urine Urobilinogen Normal Ur Leukocyte Esterase Negative Urine RBC 0 SEEN Urine WBC 0-5 SEEN Ur Squamous Epith Cells 0 SEEN Urine Bacteria RARE Urine Mucus 0 SEEN Radiography Diagnostic Testing: Clinical Impression(s) from Imaging Studies Chest X-Ray 01/04/24 03:27 IMPRESSION: No radiographic evidence of acute cardiopulmonary disease. Electronically Signed: Phil Varner MD at 4:20 EDT , EKG Initial EKG: Attestation: I personally reviewed and interpreted this EKG as follows: Interpretation: Sinus Bradycardia (Sinus bradycardia 59 bpm. No evidence of LVH.) Treatment and Re-Evaluation :: CBC was normal white count 6.4 with a hemoglobin of 12.0. Differential unremarkable. D-dimer less than 0.27. Chemistry studies unremarkable. TSH is normal. test negative. Urinalysis reveals no protein. BNP is normal at 14. EKG is sinus bradycardia with no evidence of LVH. Test results discussed with the patient. I advised her that I cannot tell her why her legs are swelling, however she has no evidence of blood clots, congestive heart failure, kidney disease, or significant consequences of hypertension. Malcom wrap will be applied to the legs to help with light compression. I will write her a short course of Lasix. Patient comfortable with the plan. Discharge Plan Triage Chief Complaint: Edema ED Provider: Paula Brennan Dx/Rx/DC Orders Clinical Impression: Edema, peripheral Instructions: ED Peripheral Edema, Bilateral Prescriptions: New furosemide [Lasix] 40 mg tablet 40 mg PO DAILY Qty: 4 0RF No Action rizatriptan [Maxalt] 10 mg Tablet 10 mg PO Q2H PRN (Reason: MIGRAINES) albuterol sulfate 90 mcg/actuation HFA aerosol inhaler 2 puff INHALATION PRN PRN (Reason: SOB) elderberry fruit 200 mg Capsule 200 mg PO DAILY PRN (Reason: supplement) metformin 500 mg tablet 500 mg PO QPM Primary Care Provider: Cale Dillon Referrals: Cale Dillon, DO [Primary Care Provider] - 1 Week if not improving Print Language: Russian Disposition Disposition: Home, Self Care
[2024-01-04 03:49] LABS: Absolute Lymphocyte Count 1.61 X10^3/uL (0.83-4.51); Absolute Neutrophil Count 4.2 X10^3/uL (2.0-7.7); Basophil# 0.02 X10^3/uL; Basophil% 0.3 % (0-1); Eosinophil# 0.05 X10^3/uL; Eosinophils% 0.8 % (0-5); Hematocrit 35.4 % (37-47); Lymphocyte # 1.61 X10^3/ul (0.83-4.51); Mean Corp Hgb Conc 33.9 g/dL (32-36); Mean Corpuscular Volume 88.5 fL (81-99); Mean Platelet Vol. 10.3 fl (6.2-12.0); Monocyte% 7.8 % (0-10); NRBC Flagged by Analyzer 0 % (0-5); Neutrophil # 4.23 X10^3/uL (2.7-7.7); Neutrophil % 65.6 % (47-70); Platelet Count 210 K/mm3 (150-450); RBC Distribution Width CV 12.3 % (11.6-14.6); RBC Distribution Width SD 39.8 fl (35.1-43.9); White Blood Count 6.4 K/mm3 (4.4-11.0)
[2024-01-04 04:00] LABS: Internal QC Validated? YES +Cl - CLEAR BKGD; Pregnancy, Serum, hCG Quali. NEGATIVE Negative
[2024-01-04 04:12] LABS: BNP,B-Type NATRIURETIC PEPTIDE 14.6 pg/mL (0-100)
[2024-01-04 04:13] LABS: Anion Gap 7 (5-15); BUN 20 mg/dL (7-18); BUN/Creat Ratio 22.6 RATIO (10-20); Calcium,Total 9.3 mg/dL (8.5-10.1); Chloride 106 mmol/L (98-107); Creatinine, Serum 0.88 mg/dL (0.55-1.02); EST Glomerular Filtration Rate 75 mL/min (>60); Est Glom Filt Rate - Afr Amer 91 mL/min (>60); Estimated Creatinine Clearance 85.08 ml/min; Glucose 107 mg/dL (74-106); Potassium 3.7 mmol/L (3.5-5.1); Sodium Level 140 mmol/L (136-145); Thyroid Stim Hormone (TSH) 2.53 uIU/mL (0.358-3.74)
[2024-01-04 04:23] LABS: D-Dimer Quantitative (DVT/PE) < 0.27 FEU/ug/m (0.27-0.49)
[2024-01-04 05:19] LABS: Mucous, Urine 0 SEEN /hpf (<or=2+); Red Blood Cells-Urine 0 SEEN /hpf (0-5); Squamous Epithelial Cells - UA 0 SEEN /hpf (5-10)
[2024-01-04 05:20] LABS: Color, Urine Yellow (Yellow); Glucose, Dipstick Normal (Normal); Ketone-Dipstick Negative (Negative); Leukocyte Esterase-Dipstick Negative /ul (Negative); Nitrite-Dipstick Negative (Negative); Occult Blood-Urine 25 /ul (Negative); Protein-Dipstick Negative (Negative); Specific Gravity, Urine 1.015 (1.002-1.030); Urine Bilirubin Dipstick Negative (Negative); Urine Clarity Clear (Clear); Urine Urobilinogen Normal (Normal)
[2024-01-04 05:34] LABS: Bacteria RARE /hpf (None Seen); White Blood Cells 0-5 SEEN /hpf (0-5)
[2024-01-04 05:51] VITALS: BP 136/83; PULSE 69; RESP 15; TEMP 36.2; O2SAT 99
[2024-01-04] MEDS: Furosemide 40 MG Tablet PO (05:53)
== END 2024-01-04 05:54 | disposition home or self-care (01) ==
PROVIDERS: Emergency Provider Emergency Medicine; PCP Student in an Organized Health Care Education/Training Program; Visit Provider Emergency Medicine
DX: R60.9 Edema, unspecified (principal); Z98.1 Arthrodesis status; Z90.710 Acquired absence of both cervix and uterus
CPT/HCPCS: 71045; 80048; 81001; 83880; 84443; 84703; 85025; 85379; 93005; 99284; A4216